=== PATIENT | female | born 1980 | race Hispanic/Latino ===

== ENCOUNTER 2021-04-27 12:45 | Emergency (ER) | payer OTHER, SELFPAY ==
[~2021-04-27] VITALS: Ht 160 cm; Wt 86.2 kg
[2021-04-27 13:47] LABS: BASOPHILS % (AUTO) 0.3 % (0.0-5.0); EOSINOPHILS % (AUTO) 1.3 % (0.0-8.0); HEMATOCRIT 42.5 % (36-48); LYMPHOCYTES % (AUTO) 41.7 % (21.0-51.0); MEAN CORPUSCULAR HEMOGLOBIN 31.4 pg (27.0-33.0); MEAN CORPUSCULAR HGB CONC 34.4 g/dL (32.0-36.0); MEAN CORPUSCULAR VOLUME 91.4 fL (79-99); MONOCYTES % (AUTO) 6.5 % (3.0-13.0); NEUTROPHILS % (AUTO) 49.3 % (40.0-77.0); PLATELET COUNT (AUTO) 261 K/uL (130-400); RED BLOOD CELL COUNT(AUTO) 4.65 MIL/uL (4.00-5.50); RED CELL DISTRIBUTION WIDTH 12.3 % (11.0-15.5); WHITE BLOOD COUNT (AUTO) 10.1 K/uL (4.8-10.8)
[2021-04-27 13:54] LABS: CREATININE 0.7 mg/dL (0.5-1.5); POTASSIUM 3.9 mmol/L (3.5-5.1)
[2021-04-27 13:59] LABS: ALBUMIN 4.1 g/dL (3.5-5.0); BILIRUBIN,TOTAL 0.7 mg/dL (0.2-1.0)
[2021-04-27] MEDS ORDERED: KETOROLAC 30MG VIAL (30MG/ML) IV STA (14:36)
[2021-04-27 16:34] VITALS: BP 131/83
== END 2021-04-27 16:34 | disposition home or self-care (01) ==
LOC: EDH 12:45
DX: R07.89 Other chest pain (principal); R59.0 Localized enlarged lymph nodes; Z79.1 Long term (current) use of non-steroidal anti-inflammatories (NSAID)
CPT/HCPCS: 36415; 71045; 80053; 84484; 85025; 93005 ×2; 96374; 99285; J1885

== ENCOUNTER → 2024-10-07 | Outpatient (CLI) | payer MEDICAID ==
--- NOTE | 2024-10-07 14:05 | EKG ---
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
== END | disposition home or self-care (01) ==
LOC: LAB 12:39
PROVIDERS: ATTEND Student in an Organized Health Care Education/Training Program
DX: K80.20 Calculus of gallbladder without cholecystitis without obstruction (principal)
CPT/HCPCS: 93005

== ENCOUNTER 2024-11-05 05:40 | Day surgery (SDC) | payer MEDICAID ==
[2024-11-03 08:40] LABS: BASOPHILS # (AUTO) 0.02 K/uL (0.00-0.20); BASOPHILS % (AUTO) 0.3 % (0.0-5.0); EOSINOPHILS # (AUTO) 0.15 K/uL (0.00-0.70); EOSINOPHILS % (AUTO) 2.1 % (0.0-8.0); HEMATOCRIT 43.9 % (36-48); IMMATURE GRANULOCYTE ABSOLUTE 0.03 K/uL (0-1); LYMPHOCYTES # (AUTO) 2.2 K/uL (1.0-4.8); LYMPHOCYTES % (AUTO) 31.4 % (21.0-51.0); MEAN CORPUSCULAR HEMOGLOBIN 31.5 pg (27.0-33.0); MEAN CORPUSCULAR HGB CONC 34.2 g/dL (32.0-36.0); MEAN CORPUSCULAR VOLUME 92.2 fL (79-99); MONOCYTES # (AUTO) 0.5 K/uL (0.1-1.0); MONOCYTES % (AUTO) 6.4 % (3.0-13.0); NEUTROPHILS # (AUTO) 4.2 K/uL (1.8-7.7); NEUTROPHILS % (AUTO) 59.4 % (40.0-77.0); PLATELET COUNT (AUTO) 263 K/uL (130-400); RED BLOOD CELL COUNT(AUTO) 4.76 MIL/uL (4.00-5.50); RED CELL DISTRIBUTION WIDTH 12.3 % (11.0-15.5); WHITE BLOOD COUNT (AUTO) 7.1 K/uL (4.8-10.8)
[2024-11-03 08:49] LABS: CREATININE 0.7 mg/dL (0.5-1.0); POTASSIUM 3.8 mmol/L (3.5-5.1)
[2024-11-03 08:51] LABS: INR 0.98 (0.85-1.15); PROTHROMBIN TIME 10.4 SEC (9.6-11.6)
[2024-11-03 08:53] LABS: PARTIAL THROMBOPLASTIN TIME 36.4 SEC (26.3-35.5)
[2024-11-03 09:01] VITALS: BP 144/61; PULSE 74; RESP 17; TEMP 97.9
--- NOTE | 2024-11-03 11:59 | EKG ---
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
[~2024-11-05] VITALS: Ht 162.6 cm; Wt 94.3 kg
[2024-11-05] VITALS (17 sets, daily range): BP systolic 122–157; BP diastolic 64–88; PULSE 55–84; RESP 13–21; TEMP 97.1–98.4
[~2024-11-05 05:40] MED LIST: CHOL500045 PO; EVE1000C3 PO; LORA10TA7 PO; MVI PO; OMEGA PO; VIT B6 PO; [UNRECOGNIZED DRUG - OTHER] PO
[2024-11-05] MEDS ORDERED: acetaMINOPHEN 325 MG TAB ONE (06:47)
[2024-11-05] MEDS ORDERED: FAMOTIDINE 20MG VIAL IV ONE (06:47)
[2024-11-05] MEDS ORDERED: GABAPENTIN 300 MG CAPSULE ONE (06:57)
[2024-11-05] MEDS ORDERED: proPOFol 10 MG/ML 20ML VIAL IV ONE (07:16)
[2024-11-05] MEDS ORDERED: FENTanyl CITRate PF 50 MCG/1 ML 2ML VIAL ONE (07:16)
[2024-11-05] MEDS ORDERED: rocuRONium bROMide 10MG/1ML 5ML VL ONE ×2 (07:16→09:01)
[2024-11-05] MEDS ORDERED: LIDOCAINE PF 100MG/5ML (2%) SYRINGE 5ML ONE (07:16)
[2024-11-05] MEDS ORDERED: ketaMINE 50MG/ML SYRINGE 50 MG/ML DISP.SYRIN ONE (07:22)
[2024-11-05] MEDS: INDOCYANINE GREEN 25 MG VIAL IJ ONE (07:42)
[2024-11-05] MEDS: LACTATED RINGERS 1000ML 1,000 ML IV ONE (07:50)
[2024-11-05] MEDS: ceFAZolin SODIUM 2 GM VIAL ONE (07:51)
[2024-11-05] MEDS ORDERED: ondanSETRON 4MG INJ ONE (07:52)
[2024-11-05] MEDS ORDERED: dexaMETHasone SOD PHOSPHATE 10MG/ML 1ML VIAL ONE (07:52)
[2024-11-05] MEDS: BUPIvacaine/PF 0.25% 30ML VIAL IJ ONE (08:06)
[2024-11-05] MEDS ORDERED: GLYCOPYRROLATE 0.2 MG/ML 5 ML VIAL ONE (08:18)
[2024-11-05] MEDS ORDERED: NEOSTIGMINE METHYLSULFATE 1MG/ML IV ONE (08:18)
[2024-11-05] MEDS: ketOROlac 30MG VIAL (30MG/ML) ONE (09:42)
[2024-11-05] MEDS: hydroMORPHone 1 MG INJ ONE (09:51)
--- NOTE | 2024-11-05 09:52 | OP ---
Operative Note: DATE OF PROCEDURE: 11/05/24 SURGEON: SHWETA PINEDA MD ALUMINUM SIDING APPLICATOR: [Please review operative record] ANESTHESIA: [General and local] ANESTHESIOLOGIST/TRANSPLANT COORDINATOR: [Please review operative record] PREOPERATIVE DIAGNOSIS: [Symptomatic cholelithiasis] POSTOPERATIVE DIAGNOSIS: [Same] SYNOPSIS: [Mildly inflamed gallbladder] PROCEDURE: [Robotic assisted laparoscopic cholecystectomy, ICG green cholangiography] ESTIMATED BLOOD LOSS: [20 cc] INDICATIONS: [Patient is a 44-year-old female with chronic right upper quadrant postprandial pain who was found to have cholelithiasis including a gallstone of more than 2 cm. Patient failed conservative therapy with analgesics and dietary changes. Recommendation was given for surgical removal of the gallbladder. Risks, benefits, alternatives were discussed with the patient. Patient had all her questions answered. Patient agreed to proceed with surgical procedure.] DESCRIPTION OF PROCEDURE: [After appropriate consent was obtained, the patient was transferred to the operating room and placed in supine position on the operating table. SCDs were placed, preop antibiotics were given. Patient underwent induction of general anesthesia, endotracheal intubation. Patient was then prepped and draped in usual sterile fashion. Time-out was performed. Through a left subcostal incision, Veress needle was inserted into the peritoneal cavity. Insufflation was allowed to 12 mmHg. Through a supraumbilical incision, 8 mm trocar and laparoscope were inserted into the peritoneal cavity using PoolCubesview. Veress needle and this vicinity were examined with no signs of injury. Rest of my trocars were all placed under direct visualization. Patient was positioned on a reverse Trendelenburg at 20 po sition. The Lonnie robot was docked at this time. Upon evaluation of the gallbladder, it appeared chronically inflamed, there were a few omental adhesions that were taken down with a combination of blunt and hook electrocautery. Gallbladder fundus was grasped and retracted cephalad, gallbladder infundibulum was grasped and retracted medially and laterally in order to expose Calot's triangle. Calot's triangle was dissected using a combination of both hook electrocautery and blunt dissection. With the jakob tance of IC green cholangiography appropriate identification of the cystic duct was possible. Also the common bile duct was identified. No signs of ductal dilatation or filling defects were obvious. One cystic artery and cystic duct were appropriately identified, the cystic duct was clipped 3 times and sharply divided leaving two of the clips behind. The cystic artery was clipped one time with this clip staying behind after cauterizing the artery and sharply dividing it. The gallbladder was then removed from the gallbladder fossa using bipolar energy. Hemostasis on the gallbladder fossa was obtained with bipolar energy. The gallbladder was then placed in an Endo-Catch bag. The Lonnie robot at this time was undocked. At this time the gallbladder was removed through one of the port incisions. Incision had to be enlarged in order to retrieve the gallbladder containing a large stone. The fascia of this port was reapproximated using 0 Vicryl suture through a suture Passer. Final inspection revealed adequate hemostasis, no concerns for injury. At this time all instruments were removed. Abdomen was deflated. Counts were correct at the end of the case. Incisions were closed with 4-0 Monocryl suture. Dermabond was applied over the incisions. Patient tolerated the procedure well. Transferred to recovery in a good condition.] SHWETA PINEDA MD Nov 05, 2024 09:52
--- NOTE | 2024-11-05 09:57 | DS ---
Discharge Summary Hospital Course Patient is a 44-year-old female who was admitted from the outpatient setting for elective robotic assisted laparoscopic cholecystectomy due to symptomatic cholelithiasis on 11/05/2024. No issues during the procedure. Patient tolerated the procedure well. Patient with no major concerns at this time. Currently in recovery. Remains hemodynamically stable, afebrile. On 3 L nasal cannula. Aerating well, normal sinus rhythm. Abdomen is benign, appropriately tender to palpation. Incisions are clean dry and intact. No rebound or guarding. Return precautions given including fevers of 101.5 or higher, worsening abdominal pain, intractable nausea and vomiting. Postop medications have been submitted to the patient's pharmacy, follow up already in place. Patient to advance diet as tolerated. No lifting more than 20 lb for a month. Okay to shower 24 hours after the procedure. SHWETA PINEDA MD Nov 05, 2024 09:57
[2024-11-05] MEDS: ondanSETRON 4MG INJ ONE (10:15)
== END 2024-11-05 11:15 | disposition home or self-care (01) ==
LOC: DAH 05:40
PROVIDERS: ATTEND Surgery
DX: K80.10 Calculus of gallbladder with chronic cholecystitis without obstruction (principal); K75.81 Nonalcoholic steatohepatitis (NASH); E78.5 Hyperlipidemia, unspecified; R10.11 Right upper quadrant pain; E66.9 Obesity, unspecified; Z68.35 Body mass index [BMI] 35.0-35.9, adult; Z79.899 Other long term (current) drug therapy; Z98.890 Other specified postprocedural states
CPT/HCPCS: 80048; 84703; 85025; 85610; 85730; 86850; 86900; 86901; 36415; 93005; 47563; 88304; A6260; J1885; A4663; J7030; A4215 ×2; J7120; J3490 ×5; J3010; J1171; J1100; J0665; J2003; J2704; J2405 ×2; J2710; J0690; A4930; A4223; A4222; A4221; A4600; S2900